=== PATIENT | male | born 1970 | race Caucasian/White ===

== ENCOUNTER 2017-10-07 09:26 | Inpatient (IN) | payer OTHER ==
[~2017-10-07] VITALS: Ht 172.7 cm; Wt 98.2 kg
[~2017-10-07 09:26] MED LIST: ASPI81TA27 PO; FEXO-47 PO; LISI10TA6 PO; MAGN250T3 PO; METF-370 PO; OMEG100078 PO; RIV15T PO
[2017-10-07] MEDS ORDERED: MIDAZOLAM HCL 5 MG/ML-1ML VIAL IV ONE (10:00)
[2017-10-07] MEDS ORDERED: fentaNYL CITRATE 100 MCG/2 ML VL IV ONE ×2 (10:00→12:15)
[2017-10-07] MEDS ORDERED: MIDAZOLAM HCL 1MG/1ML-2 ML VIAL ONE ×2 (10:18→12:01)
[2017-10-07] MEDS ORDERED: fentaNYL CITRATE 100 MCG/2 ML VL ONE ×2 (10:18→12:00)
[2017-10-07] MEDS ORDERED: diphenhdrAMINE HCL 50 MG/1 ML VL IV ONE ×2 (10:30→12:15)
[2017-10-07] MEDS ORDERED: diphenhdrAMINE HCL 50 MG/1 ML VL ONE ×3 (10:43→12:28)
[2017-10-07] MEDS ORDERED: AMIODARONE HCL (50 MG/ ML) 3 ML VIAL IV ONE (12:00)
[2017-10-07] MEDS ORDERED: HEPARIN SODIUM (PORCINE) 5000 UNITS/ML 1ML VIAL ONE (12:13)
[2017-10-07] MEDS ORDERED: MIDAZOLAM HCL 1MG/1ML-2 ML VIAL IV ONE (12:15)
[2017-10-07] MEDS ORDERED: AMIODARONE HCL 150 MG in D5W 5% 100 ML IV ONE (12:15)
[2017-10-07] MEDS ORDERED: HYDROmorphone HCL 2 MG/ML VL IV ONE (12:35)
[2017-10-07] MEDS ORDERED: HYDROmorphone HCL 2 MG/ML VL ONE (12:36)
[2017-10-07] MEDS ORDERED: MORPHINE SULFATE 4 MG/ML SYR/VIAL IV PRN (13:00)
[2017-10-07] MEDS ORDERED: FEXOFENADINE HCL 60 MG TAB PO PRN (13:00)
[2017-10-07] MEDS ORDERED: NITROGLYCERIN 0.4 MG SL TAB SL PRN (13:00)
[2017-10-07] MEDS ORDERED: ACETAMINOPHEN 500 MG TAB PO PRN (13:00)
[2017-10-07] MEDS ORDERED: AMIODARONE HCL 900 MG in DEXTROSE 500 ML IV SCH ×2 (13:07→19:07)
[2017-10-07] MEDS: SODIUM CHLOR 0.9% PF (SALINE LOCK) 10ML VIAL/SYR IV SCH ×2 (14:00→21:32)
[2017-10-07] MEDS ORDERED: DEXTROSE (50%) 50ML SYRG IV PRN (15:15)
[2017-10-07 16:15] VITALS: BP 110/75
[2017-10-07] MEDS: InsuLIN REG 1unit/0.01ml Soln (100units/ml) SC SCH ×2 (17:00→22:00)
[2017-10-07] MEDS: ACCU-CHEK COMFORT CURVE STRIP VI SCH ×2 (17:43→22:00)
[2017-10-07] MEDS: RIVAROXABAN 20 MG TAB PO SCH (18:28)
[2017-10-07] MEDS: metFORMIN HYDROCHLORIDE 500 MG TAB PO SCH (18:29)
[2017-10-07] MEDS ORDERED: MORPHINE SULFATE 8mg/ml INJ SDV IV PRN (18:45)
[2017-10-07 19:54] VITALS: BP 105/67
[2017-10-07] MEDS: ATORVASTATIN 20 MG TAB PO SCH (21:32)
[2017-10-07] MEDS ORDERED: AMIODARONE HCL 200 MG TAB PO SCH (22:00)
[2017-10-07 23:45] VITALS: BP 105/63
[2017-10-08] MEDS ORDERED: AMIODARONE HCL 200 MG TAB PO ONE ×2 (01:45→09:30)
[2017-10-08 04:40] VITALS: BP 106/63
[2017-10-08] MEDS: SODIUM CHLOR 0.9% PF (SALINE LOCK) 10ML VIAL/SYR IV SCH ×3 (06:00→21:25)
[2017-10-08] MEDS: metFORMIN HYDROCHLORIDE 500 MG TAB PO SCH ×2 (06:41→20:15)
[2017-10-08] MEDS: ACCU-CHEK COMFORT CURVE STRIP VI SCH ×4 (06:42→21:25)
[2017-10-08] MEDS: InsuLIN REG 1unit/0.01ml Soln (100units/ml) SC SCH ×4 (06:42→21:24)
[2017-10-08 08:27] LABS: Basophils # (auto) 0 uL; Basophils % (auto) 0.8 % (0.0-2.0); Eosinophils # (auto) 0.2 uL; Hematocrit 46.1 % (41.0-53.0); Hemoglobin 15.6 g/dL (13.5-17.5); Lymphocytes # (auto) 1.3 uL; Mean Corpuscular Hemoglobin 27.5 pg (28.0-32.0); Mean Corpuscular Hgb Conc. 33.7 g/dL (32.0-36.0); Mean Corpuscular Volume 81.5 fL (80.0-100.0); Monocytes # (auto) 0.4 uL; Monocytes % (auto) 7.7 % (0.0-12.0); Neutrophils # (auto) 3.7 uL; Neutrophils % (auto) 65.5 % (37.0-80.0); Platelet Count (auto) 241 10^3/uL (140-450); Red Blood Cells 5.66 10^6/uL (4.5-5.90); Red Cell Distribution Width 13.8 % (11.8-14.3); White Blood Cell 5.6 10^3/uL (4.4-10.8)
[2017-10-08 08:30] LABS: Calcium 9.3 mg/dL (8.5-10.1); Potassium 4.4 mmol/L (3.5-5.1)
[2017-10-08 08:34] LABS: BUN/Creatinine Ratio 14.4
[2017-10-08 09:10] VITALS: BP 117/69
[2017-10-08] MEDS ORDERED: AMIODARONE HCL 200 MG TAB PO SCH ×3 (10:00→22:00)
[2017-10-08] MEDS: ASPirin-EC 81 mg tab PO SCH (10:02)
[2017-10-08] MEDS: LISINOPRIL 10 MG TAB PO SCH (10:03)
[2017-10-08] MEDS ORDERED: AMIODARONE HCL 900 MG in DEXTROSE 500 ML IV SCH ×3 (11:30→18:00)
[2017-10-08] MEDS: RIVAROXABAN 20 MG TAB PO SCH (20:15)
[2017-10-08 20:30] VITALS: BP 108/67
[2017-10-08 21:33] LABS: Magnesium 2.1 mg/dL (1.6-2.6); Potassium 3.9 mmol/L (3.5-5.1)
[2017-10-08] MEDS: ATORVASTATIN 20 MG TAB PO SCH (21:47)
[2017-10-08] MEDS ORDERED: POTASSIUM CHL 10 Meq TABLET PO ONE (22:00)
[2017-10-08 22:44] VITALS: BP 105/77
[2017-10-09 04:00] VITALS: BP 93/48
[2017-10-09 05:03] LABS: Basophils # (auto) 0.1 uL; Basophils % (auto) 0.9 % (0.0-2.0); Eosinophils # (auto) 0.2 uL; Eosinophils % (auto) 3.1 % (0.0-7.0); Hematocrit 47.5 % (41.0-53.0); Hemoglobin 16.4 g/dL (13.5-17.5); Lymphocytes # (auto) 1.6 uL; Lymphocytes % (auto) 24.9 % (10.0-50.0); Mean Corpuscular Hemoglobin 28.2 pg (28.0-32.0); Mean Corpuscular Hgb Conc. 34.5 g/dL (32.0-36.0); Mean Corpuscular Volume 81.7 fL (80.0-100.0); Monocytes # (auto) 0.4 uL; Monocytes % (auto) 6.6 % (0.0-12.0); Neutrophils # (auto) 4.2 uL; Neutrophils % (auto) 64.5 % (37.0-80.0); Nucleated Red Blood Cells % 0.1 %; Platelet Count (auto) 254 10^3/uL (140-450); Red Blood Cells 5.81 10^6/uL (4.5-5.90); Red Cell Distribution Width 13.5 % (11.8-14.3); White Blood Cell 6.5 10^3/uL (4.4-10.8)
[2017-10-09 05:57] LABS: Albumin 3.7 g/dL (3.4-5.0); BUN/Creatinine Ratio 15.7; Bilirubin, Total 0.7 mg/dL (0.2-1.0); Calcium 9.2 mg/dL (8.5-10.1); Potassium 3.9 mmol/L (3.5-5.1); Total Protein 7.6 g/dL (6.4-8.2)
[2017-10-09] MEDS: SODIUM CHLOR 0.9% PF (SALINE LOCK) 10ML VIAL/SYR IV SCH ×3 (06:00→21:45)
[2017-10-09] MEDS: metFORMIN HYDROCHLORIDE 500 MG TAB PO SCH ×2 (06:26→18:09)
[2017-10-09] MEDS: ACCU-CHEK COMFORT CURVE STRIP VI SCH ×4 (06:27→21:46)
[2017-10-09] MEDS: InsuLIN REG 1unit/0.01ml Soln (100units/ml) SC SCH ×4 (06:27→21:46)
[2017-10-09 07:48] VITALS: BP 109/79
[2017-10-09] MEDS ORDERED: POTASSIUM CHL 20 Meq TABLET PO ONE (08:45)
[2017-10-09] MEDS ORDERED: AMIODARONE HCL 900 MG in DEXTROSE 500 ML IV SCH (08:45)
[2017-10-09] MEDS: AMIODARONE HCL 900 MG in DEXTROSE 500 ML IV SCH (09:22)
[2017-10-09] MEDS: ASPirin-EC 81 mg tab PO SCH (09:32)
[2017-10-09] MEDS: AMIODARONE HCL 200 MG TAB PO SCH ×2 (09:32→21:45)
[2017-10-09] MEDS: LISINOPRIL 10 MG TAB PO SCH (10:00)
[2017-10-09 11:52] VITALS: BP 107/67
[2017-10-09 16:00] VITALS: BP 104/84
[2017-10-09] MEDS: RIVAROXABAN 20 MG TAB PO SCH (18:09)
[2017-10-09 19:44] VITALS: BP 114/71
[2017-10-09] MEDS: ATORVASTATIN 20 MG TAB PO SCH (21:46)
[2017-10-09 23:40] VITALS: BP 109/52
[2017-10-10] MEDS ORDERED: AMIODARONE HCL 900 MG IV ONE (00:33)
[2017-10-10] MEDS: AMIODARONE HCL 900 MG in DEXTROSE 500 ML IV SCH (00:39)
[2017-10-10 05:10] LABS: Basophils # (auto) 0.1 uL; Basophils % (auto) 0.6 % (0.0-2.0); Eosinophils # (auto) 0.1 uL; Eosinophils % (auto) 1.5 % (0.0-7.0); Hemoglobin 16.9 g/dL (13.5-17.5); Lymphocytes # (auto) 1.1 uL; Lymphocytes % (auto) 12.8 % (10.0-50.0); Mean Corpuscular Hemoglobin 28.5 pg (28.0-32.0); Mean Corpuscular Hgb Conc. 35.2 g/dL (32.0-36.0); Mean Corpuscular Volume 80.9 fL (80.0-100.0); Monocytes # (auto) 0.7 uL; Monocytes % (auto) 7.4 % (0.0-12.0); Neutrophils % (auto) 77.7 % (37.0-80.0); Nucleated Red Blood Cells % 0.1 %; Platelet Count (auto) 264 10^3/uL (140-450); Red Blood Cells 5.94 10^6/uL (4.5-5.90); Red Cell Distribution Width 13.9 % (11.8-14.3)
[2017-10-10 05:43] LABS: Calcium 9.1 mg/dL (8.5-10.1); Magnesium 2.2 mg/dL (1.6-2.6)
[2017-10-10] MEDS: SODIUM CHLOR 0.9% PF (SALINE LOCK) 10ML VIAL/SYR IV SCH ×2 (06:00→13:53)
[2017-10-10] MEDS ORDERED: METOPROLOL TARTRATE 1MG/1ML-5ML VIAL IV ONE ×5 (06:45→10:39)
[2017-10-10] MEDS: InsuLIN REG 1unit/0.01ml Soln (100units/ml) SC SCH ×2 (07:00→11:30)
[2017-10-10] MEDS: metFORMIN HYDROCHLORIDE 500 MG TAB PO SCH (07:00)
[2017-10-10] MEDS: ACCU-CHEK COMFORT CURVE STRIP VI SCH ×2 (07:24→11:59)
[2017-10-10 08:00] VITALS: BP 120/81
[2017-10-10 08:32] LABS: Free T3 2.48 pg/mL (2.3-4.2); Free T4 (Free Thyroxine) 1.46 ng/dL (0.89-1.76)
[2017-10-10] MEDS ORDERED: fentaNYL CITRATE 100 MCG/2 ML VL IV ONE (09:30)
[2017-10-10] MEDS ORDERED: FLUMAZENIL 0.1 MG/ML INJ 10ML MDV IV ONE ×2 (09:30→09:42)
[2017-10-10] MEDS ORDERED: diphenhdrAMINE HCL 50 MG/1 ML VL IV ONE (09:30)
[2017-10-10] MEDS ORDERED: NALOXONE HCL 0.4 MG/ML VIAL IV ONE (09:30)
[2017-10-10] MEDS ORDERED: MIDAZOLAM HCL 1MG/1ML-2 ML VIAL IV ONE (09:30)
[2017-10-10] MEDS ORDERED: NALOXONE HCL 0.4 MG/ML VIAL ONE (09:42)
[2017-10-10] MEDS ORDERED: fentaNYL CITRATE 100 MCG/2 ML VL ONE (09:42)
[2017-10-10] MEDS ORDERED: MIDAZOLAM HCL 1MG/1ML-2 ML VIAL ONE (09:43)
[2017-10-10] MEDS ORDERED: diphenhdrAMINE HCL 50 MG/1 ML VL ONE (09:43)
[2017-10-10] MEDS ORDERED: METOPROLOL TARTRATE 25 MG TAB PO SCH (10:00)
[2017-10-10] MEDS ORDERED: LISINOPRIL 5 MG TAB PO SCH (10:00)
[2017-10-10] MEDS ORDERED: LIDOCAINE VISCOUS 2% 15ML UD ONE (10:02)
[2017-10-10] MEDS ORDERED: LIDOCAINE VISCOUS 2% 15ML UD PO ONE (10:15)
[2017-10-10] MEDS ORDERED: DIGOXIN (250MCG/ML) 2 ML AMPULE IV ONE (10:15)
[2017-10-10] MEDS ORDERED: DIGOXIN (250MCG/ML) 2 ML AMPULE ONE (10:18)
[2017-10-10] MEDS ORDERED: DILTIAZEM HCL 25 MG/5 ML VIAL IV ONE (10:45)
[2017-10-10] MEDS ORDERED: DILTIAZEM HCL 120MG ER CAP PO ONE ×2 (11:00→11:15)
[2017-10-10] MEDS ORDERED: AMIODARONE HCL 200 MG TAB PO ONE ×2 (11:00→11:15)
[2017-10-10] MEDS ORDERED: METOPROLOL TARTRATE 50 MG TAB PO ONE ×2 (11:00→11:15)
[2017-10-10] MEDS: METOPROLOL TARTRATE 1MG/1ML-5ML VIAL IV SCH ×2 (11:07→11:10)
[2017-10-10 11:24] VITALS: BP 105/70
[2017-10-10 11:50] VITALS: BP 105/70
[2017-10-10] MEDS: ASPirin-EC 81 mg tab PO SCH (11:57)
[2017-10-10] MEDS ORDERED: AMIODARONE HCL 200 MG TAB PO SCH (22:00)
[2017-10-10] MEDS ORDERED: METOPROLOL TARTRATE 50 MG TAB PO SCH (22:00)
[2017-10-11] MEDS ORDERED: DILTIAZEM HCL 120MG ER CAP PO SCH (10:00)
== END 2017-10-10 18:00 | disposition home or self-care (01) | DRG 309 ==
LOC: CATH 09:26 → DOU IN ICU 09:27 → TELE-CENTR 10-08 02:30 → DOU IN ICU 10-08 20:09
PROVIDERS: ADMIT Internal Medicine Cardiovascular Disease; ATTEND Internal Medicine Cardiovascular Disease
PROC: B246ZZ4 Ultrasonography of Right and Left Heart, Transesophageal (ICD-10-PCS; principal; 2017-10-10)
PROC: 5A2204Z Restoration of Cardiac Rhythm, Single (ICD-10-PCS; 2017-10-10)
DX: I48.91 Unspecified atrial fibrillation (principal); D68.69 Other thrombophilia; E11.8 Type 2 diabetes mellitus with unspecified complications; I10 Essential (primary) hypertension; Z79.82 Long term (current) use of aspirin; Z79.899 Other long term (current) drug therapy
CPT/HCPCS: 36415; 80048; 80053; 82962; 83735; 84132; 84439; 84443; 84481; 84484; 85025; 87081; 93005; 93312; 99152; J1815; J2250; J7060